=== PATIENT | female | born 1955 | race Caucasian/White ===

== ENCOUNTER 2017-07-11 06:30 | Emergency (ER) | payer SELFPAY ==
--- NOTE | 2017-07-11 06:51 | PCM.HP ---
H&P History of Present Illness - General Date of Service: 07/11/17 Admit Problem/Dx: Right upper quadrant pain Source of Information: Patient History Limitations: Reports: Language Barrier, Other ([employer]er with family members) - History of Present Illness Onset of Symptoms: Reports: Unknown/Unsure Symptom Onset Date: 07/10/17 Symptom Onset Time: 20:30 Duration of Symptoms: Reports: Hour(s):, Constant Location: Reports: Abdomen Quality: Reports: Burning, Pressure Severity: Moderate Improves with: Reports: None Worsens with: Reports: None Associated Symptoms: Reports: Fever/Chills Right Upper Abdomen Pain Score (Numeric/FACES): 4 - Related Data Allergies/Adverse Reactions: Allergies Allergy/AdvReac Type Severity Reaction Status Date / Time No Known Drug Allergies Allergy Cannot Verified 07/11/17 06:51 Remember Home Medications: Home Meds Aspirin [Adult Low Dose Aspirin EC] 81 mg PO DAILY #90 tablet. 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 - Infectious Disease History Infectious Disease History: Reports: Chicken Pox - Past Surgical History GI Surgical History: Reports: None Musculoskeletal Surgical History: Reports: Shoulder Surgery Social & Family History - Family History Family Medical History: Noncontributory - Tobacco Use Smoking Status *Q: Never Smoker Second Hand Smoke Exposure: Yes - Caffeine Use Caffeine Use: Reports: Coffee - Recreational Drug Use Recreational Drug Use: No H&P Review of Systems - Review of Systems: Review Of Systems: See Below General: Reports: Fever, Chills HEENT: Reports: No Symptoms Pulmonary: Reports: No Symptoms Cardiovascular: Reports: No Symptoms Gastrointestinal: Reports: Abdominal Pain. 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 No: Systolic Murmur GI/Abdominal Exam: Normal Bowel Sounds, Soft (Tenderness in the right upper quadrant radiating into back there is no flank pain to percussion but feels a pressure sensation on the right side) (Female) Exam: Deferred Rectal (Female) Exam: Deferred Back Exam: Normal Inspection, CVA Tenderness (R) (Mild sure-like sensation) Extremities: Normal Inspection Skin: Warm, Dry, Intact Neurological: Cranial Nerves Intact Neuro Extensive - Mental Status: Alert, Oriented x3 Neuro Extensive - Motor, Sensory, Reflexes: CN II-XII Intact Psychiatric: Alert, Normal Affect, Normal Mood - Patient Data Result Diagrams: 07/11/17 06:50 07/11/17 06:50 - Problem List (1) Abdominal pain, right upper quadrant SNOMED Code(s): 013306503 ICD Code: R10.11 - RIGHT UPPER QUADRANT PAIN Status: Acute Priority: High Current Visit: Yes (2) Leukocytosis SNOMED Code(s): 595929597, 310898002 ICD Code: D72.829 - ELEVATED WHITE BLOOD CELL COUNT, UNSPECIFIED Status: Acute Priority: High Current Visit: Yes (3) LFT elevation SNOMED Code(s): 470131284, 396917807 ICD Code: R79.89 - OTHER SPECIFIED ABNORMAL FINDINGS OF BLOOD CHEMISTRY Status: Acute Priority: High Current Visit: Yes (4) Pancreatitis SNOMED Code(s): 92245310 ICD Code: K85.90 - ACUTE PANCREATITIS WITHOUT NECROSIS OR INFECTION, UNSP Status: Acute Priority: High Current Visit: Yes (5) Cholecystitis SNOMED Code(s): 92174616 ICD Code: K81.9 - CHOLECYSTITIS, UNSPECIFIED Status: Acute Priority: High Current Visit: Yes (6) Hyperglycemia SNOMED Code(s): 31422361 ICD Code: R73.9 - HYPERGLYCEMIA, UNSPECIFIED Status: Acute Priority: High Current Visit: Yes Problem List Initiated/Reviewed/Updated: Yes Assessment/Plan Comment:: Contact [facility] Transfer arranged for direct admission intermediate floor per Dr. Alexander after initial discussion with Dr Galav[facility] services. No Ultra sound available here and time consumption for CT delay in time of transfer patient will benefit of the immediate transfer as able to arrange versus awaiting studies that may not provide complete diagnostic ability. Fluids and Zosyn 3.375 g will be administered initiated here and continued in route. EMTALA forms as well as transfer documentation completed.
[2017-07-11 07:21] LABS: CHLORIDE,CL 103 mmol/L (98-115); SODIUM,NA 146 mmol/L (136-145)
[2017-07-11] MEDS ORDERED: Piperacillin/Tazobactam/Dext 3.375 GM in Premix Bag 1 BAG IV ONE (07:49)
[2017-07-11 07:59] VITALS: BP 128/63
[2017-07-11] MEDS ORDERED: Sodium Chloride 0.9% 1,000 ML IV SCH (08:45)
== END 2017-07-11 08:30 ==
LOC: KA.ED 06:30
DX: Z13.9 Encounter for screening, unspecified (principal)
CPT/HCPCS: 36415; 74022; 80053; 81001; 82150; 83690; 85025; 96374; 99285; J2543; J7030